=== PATIENT | male | born 1990 | race Caucasian/White ===

== ENCOUNTER 2023-07-18 17:13 | Emergency (ER) | payer BC, OTHER ==
--- NOTE | 2023-07-18 17:41 | ED ---
General Adult HPI - General Chief complaint: Syncope Stated complaint: Syncope Time Seen by Provider: 07/18/23 17:20 Source: patient, EMS Mode of arrival: EMS Limitations: no limitations - History of Present Illness Initial comments: 32-year-old male with no past medical history presents emergency department with an episode of unresponsiveness. is at bedside and provides the history. States that the patient had walked into the house. He appeared pale and went limp. She was able to lower him to the ground. She states that he did have some shaking activity while on the ground. Symptoms lasted for a few minutes while she called EMS. When patient originally awoke he was agitated but did come to. Patient is evaluated by myself and is back to his normal baseline. He has no history of cardiac disease. No previous history of syncope. He denied having any headaches or chest pain prior to the episode. He has no history of seizures. No family history of seizure disorder. No recent blunt head trauma. Patient did not bite his tongue. There is no bowel or bladder incontinence. He denies any drug or alcohol use. No other alleviating, precipitating or modifying factors - Related Data Home Medications Medication Instructions Recorded Confirmed No Known Home Medications 05/20/15 05/20/15 Allergies Allergy/AdvReac Type Severity Reaction Status Date / Time No Known Allergies Allergy Verified 07/18/23 17:18 Review of Systems ROS Statement: Those systems with pertinent positive or pertinent negative responses have been documented in the HPI. ROS Other: All systems not noted in ROS Statement are negative. Past Medical History Past Medical History: No Reported History History of Any Multi-Drug Resistant Organisms: None Reported Past Surgical History: No Surgical Hx Reported Past Psychological History: No Psychological Hx Reported Smoking Status: Never smoker Past Alcohol Use History: Occasional Past Drug Use History: None Reported General Exam Limitations: no limitations General appearance: alert, in no apparent distress Head exam: Present: atraumatic, normocephalic, normal inspection Eye exam: Present: normal appearance, PERRL, EOMI. Absent: scleral icterus, conjunctival injection, periorbital swelling ENT exam: Present: normal exam, mucous membranes moist Neck exam: Present: normal inspection. Absent: tenderness, meningismus, lymphadenopathy Respiratory exam: Present: normal lung sounds bilaterally. Absent: respiratory distress, wheezes, rales, rhonchi, stridor Cardiovascular Exam: Present: regular rate, normal rhythm, normal heart sounds. Absent: systolic murmur, diastolic murmur, rubs, gallop, clicks GI/Abdominal exam: Present: soft, normal bowel sounds. Absent: distended, tenderness, guarding, rebound, rigid Extremities exam: Present: normal inspection, full ROM, normal capillary refill. Absent: tenderness, pedal edema, joint swelling, calf tenderness Back exam: Present: normal inspection Neurological exam: Present: alert, oriented X3, CN II-XII intact Psychiatric exam: Present: normal affect, normal mood Skin exam: Present: warm, dry, intact, normal color. Absent: rash Course Vital Signs 07/18/23 07/18/23 07/18/23 17:15 19:26 22:19 Temperature 98.8 F Pulse Rate 84 65 70 Respiratory 18 16 16 Rate Blood Pressure 135/74 125/71 121/72 O2 Sat by Pulse 100 98 96 Oximetry Medical Decision Making - Medical Decision Making Was pt. sent in by a medical professional or institution (, PA, VIRTUAL RECRUITER, urgent care, hospital, or care home...) When possible be specific @ -No Did you speak to anyone other than the patient for history (EMS, parent, family, police, friend...)? What history was obtained from this source @ -I spoke with the patient's and EMS for history Did you review nursing and triage notes (agree or disagree)? Why? @ -I reviewed and agree with nursing and triage notes Were old charts reviewed (outside hosp., previous admission, EMS record, old EKG, old radiological studies, urgent care reports/EKG's, care home records)? Report findings @ -No old charts were reviewed Differential Diagnosis (chest pain, altered mental status, abdominal pain women, abdominal pain men, vaginal bleeding, weakness, fever, dyspnea, syncope, headache, dizziness, GI bleed, back pain, seizure, CVA, palpatations, mental health, musculoskeletal)? @Differential Syncope: Valvular disease, hypertrophic cardiomyopathy, pulmonary embolism, tamponade, tachycardia, bradycardia, MA, hypovolemia, hemorrhage, dissection, anemia, intracranial hemorrhage, seizure, hypoglycemia, carbon monoxide poisoning, this is not meant to be an all-inclusive list. Differential Seizure: Recurrent seizure disorder, febrile seizure, alcohol withdrawal, stimulants, meningitis, encephalitis, intercranial hemorrhage, intracranial tumor, stroke, eclampsia, thyrotoxicosis, hypocalcemia, hyponatremia, hypernatremia, hypomagnesemia, psychogenic, this is not meant to be an all-inclusive list. EKG interpreted by me (3pts min.). @ -Yes and demonstrates sinus rhythm with a rate of 76. GA interval 165. QRS 94. QTc of 377. No acute ST segment elevations or depressions. Peaked T waves V2 through V4 X-rays interpreted by me (1pt min.). @ -None done CT interpreted by me (1pt min.). @ -Yes and demonstrates no acute process U/S interpreted by me (1pt. min.). @ -None done What testing was considered but not performed or refused? (CT, X-rays, U/S, labs)? Why? @ -EEG and echo however patient would not remain hospitalized What meds were considered but not given or refused? Why? @ -None Did you discuss the management of the patient with other professionals (professionals i.e. , PA, VIRTUAL RECRUITER, lab, RT, psych nurse, psychotherapist social worker, clerk guide, teacher, foreign service officer, manager case)? Give summary @ -No Was smoking cessation discussed for >3mins.? @ -No Was critical care preformed (if so, how long)? @ -No Were there social determinants of health that impacted care today? How? (Homelessness, low income, unemployed, alcoholism, drug addiction, transportation, low edu. Level, literacy, decrease access to med. care, detention, rehab)? @ -No Was there de-escalation of care discussed even if they declined (Discuss DNR or withdrawal of care, Hospice)? DNR status @ -No What co-morbidities impacted this encounter? (DM, HTN, Smoking, COPD, CAD, Cancer, CVA, ARF, Chemo, Hep., AIDS, mental health diagnosis, sleep apnea, morbid obesity)? @ -None Was patient admitted / discharged? Hospital course, mention meds given and route, prescriptions, significant lab abnormalities, going to OR and other pertinent info. @ -Upon arrival patient seen and evaluated in room 20. Thorough history and physical exam was performed. IV access was established. Laboratory studies are conducted. CT brain was performed. Results are discussed with patient. Did discuss the difficulty between diagnosing syncope versus seizure. At this time the patient requires more testing. Did recommend admission for further evaluation however patient refused. He would like to follow-up outpatient for his further testing. Patient is instructed not to participate in any risky behavior. Do not operate heavy machinery or drive. Follow-up with the primary care doctor as soon as possible for further workup to include Holter monitor, echo and EEG. If the patient has any return of his symptoms he needs to return immediately to the emergency department. Patient was agreeable to this and discharged with a guarded prognosis Undiagnosed new problem with uncertain prognosis? @ -Yes Drug Therapy requiring intensive monitoring for toxicity (Heparin, Nitro, Insulin, Cardizem)? @ -No Were any procedures done? @ -No Diagnosis/symptom? @ -Acute seizure versus syncope Acute, or Chronic, or Acute on Chronic? @ -Acute Uncomplicated (without systemic symptoms) or Complicated (systemic symptoms)? @ -Complicated Side effects of treatment? @ -No Exacerbation, Progression, or Severe Exacerbation? @ -No Poses a threat to life or bodily function? How? (Chest pain, USA, MA, pneumonia, PE, COPD, DKA, ARF, appy, cholecystitis, CVA, Diverticulitis, Homicidal, Suicidal, threat to staff... and all critical care pts) @ -No - Lab Data Result diagrams: 07/18/23 18:50 07/18/23 18:50 Lab Results 07/18/23 07/18/23 07/18/23 Range/Units 18:50 18:50 18:50 WBC 15.6 H (3.8-10.6) k/uL RBC 4.55 (4.30-5.90) m/uL Hgb 14.0 (13.0-17.5) gm/dL Hct 41.7 (39.0-53.0) % MCV 91.5 (80.0-100.0) fL MCH 30.7 (25.0-35.0) pg MCHC 33.5 (31.0-37.0) g/dL RDW 12.2 (11.5-15.5) % Plt Count 257 (150-450) k/uL MPV 8.2 Neutrophils % (Manual) 85 % Lymphocytes % (Manual) 13 % Monocytes % (Manual) 1 % Eosinophils % (Manual) 1 % Neutrophils # (Manual) 13.26 H (1.3-7.7) k/uL Lymphocytes # (Manual) 2.03 (1.0-4.8) k/uL Monocytes # (Manual) 0.16 (0-1.0) k/uL Eosinophils # (Manual) 0.16 (0-0.7) k/uL Nucleated RBCs 0 (0-0) /100 WBC Manual Slide Review Performed Large Platelets Present PT 11.0 (10.0-12.5) sec INR 1.0 (<1.2) APTT 23.1 (22.0-30.0) sec Sodium 139 (137-145) mmol/L Potassium 4.4 (3.5-5.1) mmol/L Chloride 109 H (98-107) mmol/L Carbon Dioxide 24 (22-30) mmol/L Anion Gap 6 mmol/L BUN 10 (9-20) mg/dL Creatinine 0.63 L (0.66-1.25) mg/dL Est GFR (CKD-EPI)AfAm >90 (>60 ml/min/1.73 sqM) Est GFR (CKD-EPI)NonAf >90 (>60 ml/min/1.73 sqM) Glucose 93 (74-99) mg/dL Plasma Lactic Acid Stewart (0.7-2.0) mmol/L Calcium 9.3 (8.4-10.2) mg/dL Magnesium 2.0 (1.6-2.3) mg/dL Total Bilirubin 1.0 (0.2-1.3) mg/dL AST 32 (17-59) U/L ALT 16 (4-49) U/L Alkaline Phosphatase 56 (38-126) U/L Troponin I (0.000-0.034) ng/mL Total Protein 6.9 (6.3-8.2) g/dL Albumin 4.5 (3.5-5.0) g/dL Urine Color Urine Appearance (Clear) Urine pH (5.0-8.0) Ur Specific [place] (1.001-1.035) Urine Protein (Negative) Urine Glucose (UA) (Negative) Urine Ketones (Negative) Urine Blood (Negative) Urine Nitrite (Negative) Urine Bilirubin (Negative) Urine Urobilinogen (<2.0) mg/dL Ur Leukocyte Esterase (Negative) Urine Opiates Screen (NotDetected) Ur Oxycodone Screen (NotDetected) Urine Methadone Screen (NotDetected) Ur Barbiturates Screen (NotDetected) U Tricyclic Antidepress (NotDetected) Ur Phencyclidine Scrn (NotDetected) Ur Amphetamines Screen (NotDetected) U Methamphetamines Scrn (NotDetected) U Benzodiazepines Scrn (NotDetected) Urine Cocaine Screen (NotDetected) U Marijuana (THC) Screen (NotDetected) 07/18/23 07/18/23 07/18/23 Range/Units 18:50 18:50 18:50 WBC (3.8-10.6) k/uL RBC (4.30-5.90) m/uL Hgb (13.0-17.5) gm/dL Hct (39.0-53.0) % MCV (80.0-100.0) fL MCH (25.0-35.0) pg MCHC (31.0-37.0) g/dL RDW (11.5-15.5) % Plt Count (150-450) k/uL MPV Neutrophils % (Manual) % Lymphocytes % (Manual) % Monocytes % (Manual) % Eosinophils % (Manual) % Neutrophils # (Manual) (1.3-7.7) k/uL Lymphocytes # (Manual) (1.0-4.8) k/uL Monocytes # (Manual) (0-1.0) k/uL Eosinophils # (Manual) (0-0.7) k/uL Nucleated RBCs (0-0) /100 WBC Manual Slide Review Large Platelets PT (10.0-12.5) sec INR (<1.2) APTT (22.0-30.0) sec Sodium (137-145) mmol/L Potassium (3.5-5.1) mmol/L Chloride (98-107) mmol/L Carbon Dioxide (22-30) mmol/L Anion Gap mmol/L BUN (9-20) mg/dL Creatinine (0.66-1.25) mg/dL Est GFR (CKD-EPI)AfAm (>60 ml/min/1.73 sqM) Est GFR (CKD-EPI)NonAf (>60 ml/min/1.73 sqM) Glucose (74-99) mg/dL Plasma Lactic Acid Stewart 0.8 (0.7-2.0) mmol/L Calcium (8.4-10.2) mg/dL Magnesium (1.6-2.3) mg/dL Total Bilirubin (0.2-1.3) mg/dL AST (17-59) U/L ALT (4-49) U/L Alkaline Phosphatase (38-126) U/L Troponin I <0.012 (0.000-0.034) ng/mL Total Protein (6.3-8.2) g/dL Albumin (3.5-5.0) g/dL Urine Color Colorless Urine Appearance Clear (Clear) Urine pH 7.5 (5.0-8.0) Ur Specific [place] 1.002 (1.001-1.035) Urine Protein Negative (Negative) Urine Glucose (UA) Negative (Negative) Urine Ketones Negative (Negative) Urine Blood Negative (Negative) Urine Nitrite Negative (Negative) Urine Bilirubin Negative (Negative) Urine Urobilinogen <2.0 (<2.0) mg/dL Ur Leukocyte Esterase Negative (Negative) Urine Opiates Screen Not Detected (NotDetected) Ur Oxycodone Screen Not Detected (NotDetected) Urine Methadone Screen Not Detected (NotDetected) Ur Barbiturates Screen Not Detected (NotDetected) U Tricyclic Antidepress Not Detected (NotDetected) Ur Phencyclidine Scrn Not Detected (NotDetected) Ur Amphetamines Screen Not Detected (NotDetected) U Methamphetamines Scrn Not Detected (NotDetected) U Benzodiazepines Scrn Not Detected (NotDetected) Urine Cocaine Screen Not Detected (NotDetected) U Marijuana (THC) Screen Detected H (NotDetected) Disposition Clinical Impression: Syncope and collapse Disposition: HOME SELF-CARE Condition: Stable Instructions (If sedation given, give patient instructions): Syncope (ED) Additional Instructions: You need further workup to understand what happened today. I recommend an echo of your heart, Holter monitoring and an EEG. Please do not participate in high risk activities until your workup is complete. Return should you have return of your symptoms Is patient prescribed a controlled substance at d/c from ED?: No Referrals: None,Stated [Primary Care Provider] - 1-2 days Jay Vasques MD [STAFF PHYSICIAN] - 1-2 days Time of Disposition: 21:36
[2023-07-18 17:49] VITALS: TEMP 98.8
[2023-07-18] MEDS: SODIUM CHLORIDE 0.9% 1,000 ML IV STA (19:23)
[2023-07-18 19:29] LABS: Partial Thromboplastin Time 23.1 sec (22.0-30.0)
[2023-07-18 19:34] LABS: HCT 41.7 % (39.0-53.0); MCH 30.7 pg (25.0-35.0); MCHC 33.5 g/dL (31.0-37.0); MCV 91.5 fL (80.0-100.0); Mean Platelet Volume 8.2; Platelet Count 257 k/uL (150-450); RBC 4.55 m/uL (4.30-5.90); RDW 12.2 % (11.5-15.5); WBC 15.6 k/uL (3.8-10.6)
[2023-07-18 19:53] LABS: Eosinophils # (M) 0.16 k/uL (0-0.7); Large Platelets Present; Lymphocytes # (M) 2.03 k/uL (1.0-4.8); Monocytes # (M) 0.16 k/uL (0-1.0); Neutrophils # (M) 13.26 k/uL (1.3-7.7); Neutrophils % (M) 85 %; Nucleated Red Blood Cells 0 /100 WBC (0-0); Total Cells Counted 100
[2023-07-18 19:58] LABS: Appearance,Urine Clear (Clear); Bilirubin,Urine Negative (Negative); Blood,Urine Negative (Negative); Color,Urine Colorless; Glucose,Urine (UA) Negative (Negative); Ketones,Urine Negative (Negative); Leukocyte Esterase,Urine Negative (Negative); Nitrite,Urine Negative (Negative); PH, Urine 7.5 (5.0-8.0); Protein,Urine Negative (Negative); Specific Gravity,Urine 1.002 (1.001-1.035); Urobilinogen,Urine <2.0 mg/dL (<2.0)
[2023-07-18 20:04] LABS: ALT 16 U/L (4-49); African American GFR (CKD) >90 (>60 ml/min/1.73 sqM); Albumin 4.5 g/dL (3.5-5.0); Anion Gap 6 mmol/L; Blood Urea Nitrogen 10 mg/dL (9-20); Calcium 9.3 mg/dL (8.4-10.2); Carbon Dioxide 24 mmol/L (22-30); Chloride 109 mmol/L (98-107); Glucose 93 mg/dL (74-99); Non-African American GFR(CKD) >90 (>60 ml/min/1.73 sqM); Sodium 139 mmol/L (137-145); Total Protein 6.9 g/dL (6.3-8.2)
[2023-07-18 20:08] VITALS: RESP 16
[2023-07-18 20:09] LABS: Amphetamine Screen,Urine Not Detected (NotDetected); Barbiturate Screen,Urine Not Detected (NotDetected); Benzodiazepines Screen,Urine Not Detected (NotDetected); Cocaine Screen,Urine Not Detected (NotDetected); Methadone Screen, Urine Not Detected (NotDetected); Opiate Screen,Urine Not Detected (NotDetected); Oxycodone Screen, Urine Not Detected (NotDetected); Phencyclidine Screen,Urine Not Detected (NotDetected); Tricyclic Antidepressant,Urine Not Detected (NotDetected); Urn Cannabinoid Scrn Detected (NotDetected)
[2023-07-18 20:13] LABS: AST 32 U/L (17-59); Alkaline Phosphatase 56 U/L (38-126); Potassium 4.4 mmol/L (3.5-5.1)
--- NOTE | 2023-07-18 20:37 | XR ---
EXAMINATION TYPE: XR chest 2V DATE OF EXAM: 07/18/2023 7:22 PM CLINICAL INDICATION:Male, 32 years old with history of syncope; [facility] COMPARISON: None TECHNIQUE: XR chest 2V. Frontal and lateral views of the chest.. FINDINGS: Lines/Tubes/Devices: No indwelling lines are seen. Heart/mediastinum: Heart size is normal. Mediastinum appears normal. Pulmonary vascularity: Not increased, Lungs/Pleura: There is no evidence of pleural effusion, focal consolidation, or pneumothorax. Musculoskeletal: No acute osseous abnormality demonstrated in the limits of the exam. Other findings: None. IMPRESSION: No acute cardiopulmonary abnormality.
--- NOTE | 2023-07-18 21:02 | CT ---
EXAMINATION TYPE: CT brain cspine wo con CT DLP: 1357.3 mGycm, Automated exposure control for dose reduction was used. DATE OF EXAM: 07/18/2023 7:28 PM COMPARISON: None. CLINICAL INDICATION:Male, 32 years old with history of syncope; SYNCOPE TECHNIQUE: Brain: Multiple axial CT images of the brain were obtained without IV contrast. Cspine: Axial CT images from the skull base to the inferior aspect of T2 we obtained without intraven ous contrast. Coronal and sagittal reformatted images were also reviewed. FINDINGS: Brain: Extra-axial spaces: No abnormal extra-axial fluid collections. Ventricular system: Within normal limits. Cerebral parenchyma: No increased attenuation to suggest acute intraparenchymal hemorrhage. The gra y-white matter interface appears maintained. No significant atrophy. White matter unremarkable by C T. Cerebellum: No acute abnormality. Mass effect: No evidence of mass effect or midline shift. Intracranial vasculature: Unremarkable Soft tissues: Normal. Visualized orbits: Orbital contents appear grossly intact. Calvarium/osseous structures: No evidence of calvarial fracture. Paranasal sinuses and mastoid air cells: Clear. MRI is more sensitive for detecting acute processes such as infarct, and may be considered if clinica lly warranted. Cervical spine: Fracture: None seen. Osseous structures, spinal canal/neural foramina: Osseous structures appear unremarkable. No signific ant bony canal or neural foraminal stenoses. Vertebral alignment: No traumatic malalignment. Preserved normal cervical lordosis. There is mild ape x right curvature of the lower cervical spine seen on coronal imaging. Neck soft tissues: No acute finding.. Other: Lung apices show no acute infiltrate or pneumothorax. Mild emphysematous changes. A 2.4 mm davis bpleural nodule in the right lung apex. IMPRESSION: CT head: 1. No acute intracranial CT abnormality. CT cervical spine: 1. No evidence of acute cervical spine fracture or traumatic malalignment.
[2023-07-18 22:34] VITALS: BP 121/72; PULSE 70
== END 2023-07-18 22:20 | disposition home or self-care (01) ==
LOC: EC 17:13
DX: R55 Syncope and collapse (principal); R56.9 Unspecified convulsions
CPT/HCPCS: 36415; 70450; 71046; 72125; 80053; 80306; 81003; 83605; 83735; 84484; 85025; 85610; 85730; 93005; 96360; 96361; 99285

== ENCOUNTER 2023-08-24 17:42 | Observation (INO) | payer BC ==
--- NOTE | 2023-08-24 17:56 | ED ---
Seizure HPI - General Chief Complaint: Seizure Stated Complaint: Seizure Time Seen by Provider: 08/24/23 17:48 Source: EMS, RN notes reviewed, old records reviewed Mode of arrival: ambulatory Limitations: no limitations - History of Present Illness Initial Comments: This is a 32-year-old male to the ER for evaluation today. Patient is here for seizure evaluation. Patient has history of 3 seizures to syncopal events patient has gone through outpatient evaluation regards to syncope in the past and feels significantly anxious. Including cardiac testing monitoring echocardiogram etc. Patient is scheduled to see outpatient neurology in regards to possible seizure causes of symptoms. Patient's states patient was not answering questions went into the other room and then had shaking-like activity stiff activity and went to the ground. Currently in the ER he has no complaints MD Complaint: seizure, possible seizure -: hour(s) Description of Episode: loss of consciousness -: second(s) Witnessed: yes - by bystander Trauma: Yes Seizure History: known seizure disorder (Diagnosed) Possible Precipitating Event: none Associated Symptoms: denies other symptoms Treatments Prior to Arrival: none - Related Data Home Medications Medication Instructions Recorded Confirmed No Known Home Medications 05/20/15 05/20/15 Allergies Allergy/AdvReac Type Severity Reaction Status Date / Time No Known Allergies Allergy Verified 08/24/23 17:49 Review of Systems ROS Statement: Those systems with pertinent positive or pertinent negative responses have been documented in the HPI. ROS Other: All systems not noted in ROS Statement are negative. Past Medical History Past Medical History: No Reported History Additional Past Medical History / Comment(s): seizures x3 ?? History of Any Multi-Drug Resistant Organisms: None Reported Past Surgical History: No Surgical Hx Reported Past Psychological History: No Psychological Hx Reported Smoking Status: Never smoker Past Alcohol Use History: Occasional Past Drug Use History: Marijuana General Exam Limitations: no limitations General appearance: alert, in no apparent distress, anxious Head exam: Present: atraumatic, normocephalic, normal inspection Eye exam: Present: normal appearance, PERRL, EOMI. Absent: scleral icterus, conjunctival injection, periorbital swelling ENT exam: Present: normal exam, mucous membranes moist Neck exam: Present: normal inspection. Absent: tenderness, meningismus, lymphadenopathy Respiratory exam: Present: normal lung sounds bilaterally. Absent: respiratory distress, wheezes, rales, rhonchi, stridor Cardiovascular Exam: Present: regular rate, normal rhythm, normal heart sounds. Absent: systolic murmur, diastolic murmur, rubs, gallop, clicks GI/Abdominal exam: Present: soft, normal bowel sounds. Absent: distended, tenderness, guarding, rebound, rigid Extremities exam: Present: normal inspection, full ROM, normal capillary refill. Absent: tenderness, pedal edema, joint swelling, calf tenderness Back exam: Present: normal inspection Neurological exam: Present: alert, oriented X3, CN II-XII intact Psychiatric exam: Present: normal affect, normal mood Skin exam: Present: warm, dry, intact, normal color. Absent: rash Course Vital Signs 08/24/23 08/24/23 17:44 19:19 Temperature 98.9 F 97.7 F Pulse Rate 86 68 Respiratory 16 16 Rate Blood Pressure 121/68 O2 Sat by Pulse 98 98 Oximetry - Reevaluation(s) Reevaluation #1: 08/24/23 19:12 Medical records reviewed Reevaluation #2: 08/24/23 19:12 No recurrent seizure activity Reevaluation #3: 08/24/23 19:12 Patient informed of results questions answered Reevaluation #4: Was pt. sent in by a medical professional or institution (, PA, SATELLITE DISH REPAIRER, urgent care, hospital, or skilled nursing...) When possible be specific @ -no Did you speak to anyone other than the patient for history (EMS, parent, family, police, friend...)? What history was obtained from this source @ -no Did you review nursing and triage notes (agree or disagree)? Why? @ -agree Are old charts reviewed (outside hosp., previous admission, EMS record, old EKG, old radiological studies, urgent care reports/EKG's, skilled nursing records)? Report findings @ -yes Differential Diagnosis (chest pain, altered mental status, abdominal pain women, abdominal pain men, vaginal bleeding, weakness, fever, dyspnea, syncope, headache, dizziness, GI bleed, back pain, seizure, CVA, palpatations, mental health, musculoskeletal)? @ -prior EKG interpreted by me (3pts min.). @ -yes X-rays interpreted by me (1pt min.). @ -yes negative for acute disease CT interpreted by me (1pt min.). @ -no U/S interpreted by me (1pt. min.). @ -no What testing was considered but not performed or refused? (CT, X-rays, U/S, labs)? Why? @ -none What meds were considered but not given or refused? Why? @ -none Did you discuss the management of the patient with other professionals (professionals i.e. , PA, SATELLITE DISH REPAIRER, lab, RT, psych nurse, dialysis social worker, supervisor ski production, teacher, safety officer, geriatric case manager)? Give summary @ -no Was smoking cessation discussed for >3mins.? @ -no Was critical care preformed (if so, how long)? @ -no Were there social determinants of health that impacted care today? How? (Homelessness, low income, unemployed, alcoholism, drug addiction, transportation, low edu. Level, literacy, decrease access to med. care, fpc, rehab)? @ -none Was there de-escalation of care discussed even if they declined (Discuss DNR or withdrawal of care, Hospice)? DNR status @ -no What co-morbidities impacted this encounter? (DM, HTN, Smoking, COPD, CAD, Cancer, CVA, ARF, Chemo, Hep., AIDS, mental health diagnosis, sleep apnea, morbid obesity)? @ -none Was patient admitted / discharged? Hospital course, mention meds given and route, prescriptions, significant lab abnormalities, going to OR and other pertinent info. @ - Undiagnosed new problem with uncertain prognosis? @ -no Drug Therapy requiring intensive monitoring for toxicity (Heparin, Nitro, Insulin, Cardizem)? @ -no Were any procedures done? @ -no Diagnosis/symptom? @ - Acute, or Chronic, or Acute on Chronic? @ -Acute Uncomplicated (without systemic symptoms) or Complicated (systemic symptoms)? @ -Complicated Side effects of treatment? @ -no Exacerbation, Progression, or Severe Exacerbation? @ -exacerbation Poses a threat to life or bodily function? How? (Chest pain, USA, AR, pneumonia, PE, COPD, DKA, ARF, appy, cholecystitis, CVA, Diverticulitis, Homicidal, Suicidal, threat to staff... and all critical care pts) @ -yes Reevaluation #5: Differential Seizure: Recurrent seizure disorder, febrile seizure, alcohol withdrawal, stimulants, meningitis, encephalitis, intercranial hemorrhage, intracranial tumor, stroke, eclampsia, thyrotoxicosis, hypocalcemia, hyponatremia, hypernatremia, hypomagnesemia, psychogenic, this is not meant to be an all-inclusive list. - Consultations Consultation #1: Spoke with sound who agrees to admit this patient Medical Decision Making - Medical Decision Making 32 male to ER with history of syncope procedure, patient has gone through syncopal evaluation with no cause found. Patient has recurrent of activity today concern for seizure by family who witnessed, patient will admit for neurology - Lab Data Result diagrams: 08/24/23 18:01 08/24/23 18:01 Lab Results 08/24/23 08/24/23 08/24/23 Range/Units 18:01 18:01 18:01 WBC 12.8 H (3.8-10.6) k/uL RBC 4.64 (4.30-5.90) m/uL Hgb 14.4 (13.0-17.5) gm/dL Hct 43.1 (39.0-53.0) % MCV 92.9 (80.0-100.0) fL MCH 31.0 (25.0-35.0) pg MCHC 33.4 (31.0-37.0) g/dL RDW 12.0 (11.5-15.5) % Plt Count 285 (150-450) k/uL MPV 8.0 Neutrophils % (Manual) 69 % Lymphocytes % (Manual) 22 % Monocytes % (Manual) 4 % Eosinophils % (Manual) 5 % Neutrophils # (Manual) 8.83 H (1.3-7.7) k/uL Lymphocytes # (Manual) 2.82 (1.0-4.8) k/uL Monocytes # (Manual) 0.51 (0-1.0) k/uL Eosinophils # (Manual) 0.64 (0-0.7) k/uL Nucleated RBCs 0 (0-0) /100 WBC Manual Slide Review Performed Large Platelets Present Sodium 138 (137-145) mmol/L Potassium 4.3 (3.5-5.1) mmol/L Chloride 108 H (98-107) mmol/L Carbon Dioxide 20 L (22-30) mmol/L Anion Gap 10 mmol/L BUN 13 (9-20) mg/dL Creatinine 0.63 L (0.66-1.25) mg/dL Est GFR (CKD-EPI)AfAm >90 (>60 ml/min/1.73 sqM) Est GFR (CKD-EPI)NonAf >90 (>60 ml/min/1.73 sqM) Glucose 105 H (74-99) mg/dL Calcium 9.0 (8.4-10.2) mg/dL Phosphorus 2.4 L (2.5-4.5) mg/dL Magnesium 1.9 (1.6-2.3) mg/dL Total Bilirubin 0.8 (0.2-1.3) mg/dL AST 27 (17-59) U/L ALT 17 (4-49) U/L Alkaline Phosphatase 52 (38-126) U/L Total Protein 6.7 (6.3-8.2) g/dL Albumin 4.3 (3.5-5.0) g/dL Lipase 230 (23-300) U/L Urine Color Colorless Urine Appearance Clear (Clear) Urine pH 5.5 (5.0-8.0) Ur Specific [place] 1.011 (1.001-1.035) Urine Protein Negative (Negative) Urine Glucose (UA) Negative (Negative) Urine Ketones 1+ H (Negative) Urine Blood Trace H (Negative) Urine Nitrite Negative (Negative) Urine Bilirubin Negative (Negative) Urine Urobilinogen <2.0 (<2.0) mg/dL Ur Leukocyte Esterase Negative (Negative) Urine RBC <1 (0-5) /hpf Urine WBC 1 (0-5) /hpf Salicylates <1.0 mg/dL Urine Opiates Screen Not Detected (NotDetected) Ur Oxycodone Screen Not Detected (NotDetected) Urine Methadone Screen Not Detected (NotDetected) Acetaminophen <10.0 ug/mL Ur Barbiturates Screen Not Detected (NotDetected) U Tricyclic Antidepress Not Detected (NotDetected) Ur Phencyclidine Scrn Not Detected (NotDetected) Ur Amphetamines Screen Not Detected (NotDetected) U Methamphetamines Scrn Not Detected (NotDetected) U Benzodiazepines Scrn Not Detected (NotDetected) Urine Cocaine Screen Not Detected (NotDetected) U Marijuana (THC) Screen Detected H (NotDetected) Serum Alcohol <10 mg/dL - EKG Data -: EKG Interpreted by Me (EKG is sinus 76 NC 160 QRS 98 QTc 382) Disposition Clinical Impression: New onset seizure Disposition: ADMITTED IP TO THIS HOSP Condition: Good Is patient prescribed a controlled substance at d/c from ED?: No Time of Disposition: 20:00
[2023-08-24] MEDS: SODIUM CHLORIDE 0.9% 1,000 ML IV STA (18:12)
[2023-08-24] MEDS: LORazepam 2 MG/ML INJ IV STA (18:12)
[2023-08-24 18:22] LABS: HCT 43.1 % (39.0-53.0); HGB 14.4 gm/dL (13.0-17.5); MCHC 33.4 g/dL (31.0-37.0); MCV 92.9 fL (80.0-100.0); Platelet Count 285 k/uL (150-450); RBC 4.64 m/uL (4.30-5.90); WBC 12.8 k/uL (3.8-10.6)
[2023-08-24 18:29] LABS: Appearance,Urine Clear (Clear); Bilirubin,Urine Negative (Negative); Blood,Urine Trace (Negative); Color,Urine Colorless; Glucose,Urine (UA) Negative (Negative); Ketones,Urine 1+ (Negative); Leukocyte Esterase,Urine Negative (Negative); Nitrite,Urine Negative (Negative); PH, Urine 5.5 (5.0-8.0); Protein,Urine Negative (Negative); RBC,Urine <1 /hpf (0-5); Specific Gravity,Urine 1.011 (1.001-1.035); Urobilinogen,Urine <2.0 mg/dL (<2.0); WBC,Urine 1 /hpf (0-5)
[2023-08-24 18:32] LABS: ALT 17 U/L (4-49); AST 27 U/L (17-59); Acetaminophen <10.0 ug/mL; African American GFR (CKD) >90 (>60 ml/min/1.73 sqM); Albumin 4.3 g/dL (3.5-5.0); Alcohol <10 mg/dL; Alkaline Phosphatase 52 U/L (38-126); Anion Gap 10 mmol/L; Blood Urea Nitrogen 13 mg/dL (9-20); Carbon Dioxide 20 mmol/L (22-30); Chloride 108 mmol/L (98-107); Glucose 105 mg/dL (74-99); Lipase 230 U/L (23-300); Magnesium 1.9 mg/dL (1.6-2.3); Non-African American GFR(CKD) >90 (>60 ml/min/1.73 sqM); Phosphorus 2.4 mg/dL (2.5-4.5); Potassium 4.3 mmol/L (3.5-5.1); Salicylate <1.0 mg/dL; Sodium 138 mmol/L (137-145); Total Bilirubin 0.8 mg/dL (0.2-1.3); Total Protein 6.7 g/dL (6.3-8.2)
[2023-08-24 19:03] LABS: Urn Cannabinoid Scrn Detected (NotDetected)
[2023-08-24 19:04] LABS: Amphetamine Screen,Urine Not Detected (NotDetected); Barbiturate Screen,Urine Not Detected (NotDetected); Benzodiazepines Screen,Urine Not Detected (NotDetected); Cocaine Screen,Urine Not Detected (NotDetected); Methadone Screen, Urine Not Detected (NotDetected); Opiate Screen,Urine Not Detected (NotDetected); Oxycodone Screen, Urine Not Detected (NotDetected); Phencyclidine Screen,Urine Not Detected (NotDetected); Tricyclic Antidepressant,Urine Not Detected (NotDetected)
[2023-08-24 19:21] LABS: Eosinophils # (M) 0.64 k/uL (0-0.7); Lymphocytes # (M) 2.82 k/uL (1.0-4.8); Monocytes # (M) 0.51 k/uL (0-1.0); Neutrophils # (M) 8.83 k/uL (1.3-7.7); Neutrophils % (M) 69 %; Nucleated Red Blood Cells 0 /100 WBC (0-0); Total Cells Counted 100
[2023-08-24 19:23] LABS: Large Platelets Present
[2023-08-24] MEDS ORDERED: NALOXONE 0.4 MG/ML 1 ML VIAL IV PRN (20:07)
[2023-08-24] MEDS: SODIUM CHLORIDE 0.9% 1,000 ML IV SCH (20:45)
--- NOTE | 2023-08-25 00:18 | P.HPIM ---
History of Present Illness H&P Date: 08/25/23 Chief Complaint: Gayle Patient is a 32-year-old male with no significant past medical history came to ER with an episode of " passing out" around 5 PM. As per patient's , she heard a loud thump in the room and found patient standing against the wall with a stiff body, head extended and patient was staring into the ceiling. His also witnessed him convulsing and then eventually falling down on the floor and assuming position followed by foaming at the mouth. The whole episode lasted for about 3 minutes followed by 15 minutes of postictal confusion. Pa reva denies any tongue bite or loss of urine or bowel movement. Patient also denies any prodromal sign prior to onset of seizure episode. However as per , patient wasnot being himself a few minutes before seizure-like episode started where she called his name and patient did not respond to it. This is patient's second episode of a seizure within the last 6 weeks. Patient reports similar presentation and was brought to the ER during the prior episode. He was asked to follow-up with neurology for EEG in September. Patient denies recent illness or sick contacts. Denies headaches, nausea, vomiting, fever, chills, shortness of breath, chest pain, abdominal pain, diarrhea, constipation, w eakness and numbness in upper and lower extremities. Patient is at his baseline at the time of interview. EKG done in the ER shows normal sinus rhythm with heart rate of 76 bpm, QRS duration is 98 ms, QTc is 382 ms, no ST-T wave abnormalities noted. Laboratory evaluation shows WBC 12.8, hemoglobin 14.4, hematocrit 43.1, MCV 92.9, neutrophil count 8.83, sodium 138, potassium 4.3, chloride 108, bicarb 20, BUN 13, creatinine 1.63, glucose 105, phosphorus 2.4, urine ketones 1+. Marijuana detected on urine drug screening. Vitals: Tmax 98.9 F, pulse rate 79, respiratory rate 15, blood pressure 119/66, O2 saturation 98 on room air Review of systems: Pertinent positives and negatives as discussed in HPI, a complete review of systems was performed and all other systems are negative. 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 Family History: Noncontributory Physical examination: Vital signs reviewed General: non toxic, no distress, appears at stated age, normal weight Derm: no unusual rashes/lesions, warm Head: atraumatic, normocephalic, symmetric Eyes: EOMI, no lid lag, anicteric sclera, pupils equal round reactive to light ENT: Nose and ears atraumatic Neck: No cervical lymphadenopathy, trachea midline, supple Mouth: no lip lesion, mucus membranes moist, small bite lesion on the right anterior lateral tongue (which patient reports was due toa accidental tongue bite a day ago) Cardiovascular: S1S2 reg, no murmur, positive dorsalis pedis pulse bilateral, no edema Lungs: CTA bilateral, no rhonchi, no rales, no accessory muscle use Abdominal: soft, nontender to palpation, no guarding Ext: muscle strength 5 out of 5 in all 4 extremities grossly, no gross muscle atrophy, no contractures, Neuro: CN II-XI grossly intact, no gross focal neuro deficits Psych: Alert, oriented, appropriate affect Assessment/Plan: 32-year-old male with no significant past medical history presented the ER with seizure-like activity. This is his second episode within 6 weeks. 1. Tonic-clonic seizure Neurology consulted CT head and C-spine done on prior visit was unremarkable Seizure precautions Fall precautions Give Ativan 1 mg IV push once if there is another seizure episode Continue with regular diet Start patient on Keppra 500 mg po bid 2. Leukocytosis, suspect due to acute stressor with no signs of active infection at this time Continue with IV fluids at 75 mLs/h Repeat CBC with differential 3. Ketonuria, suspect due to seizure episode Monitor BMP for blood glucose levels for now 4. Metabolic acidosis, likely due to seizure episode Continue with IV fluids and monitor for nwo DVT prophylaxis: Lovenox 40 mg subcu daily The patient is admitted with an anticipated less than than 2 midnight stay for evaluation of seizure CODE STATUS: full Discussed with: Patient Anticipated discharge place: Home Past Medical History Past Medical History: No Reported History Additional Past Medical History / Comment(s): seizures x3 ?? History of Any Multi-Drug Resistant Organisms: None Reported Past Surgical History: No Surgical Hx Reported Past Psychological History: No Psychological Hx Reported Smoking Status: Never smoker Past Alcohol Use History: Occasional Past Drug Use History: Marijuana Medications and Allergies Home Medications Medication Instructions Recorded Confirmed Type No Known Home Medications 05/20/15 05/20/15 History Allergies Allergy/AdvReac Type Severity Reaction Status Date / Time No Known Allergies Allergy Verified 08/24/23 17:49 Physical Exam Vitals: Vital Signs Temp Pulse Resp BP Pulse Ox 08/24/23 21:51 79 15 119/66 98 08/24/23 19:19 97.7 F 68 16 121/68 98 08/24/23 17:44 98.9 F 86 16 98 Intake and Output 08/24/23 08/24/23 08/25/23 14:59 22:59 06:59 Other: Weight 70.307 kg Results CBC & Chem 7: 08/24/23 18:01 08/24/23 18:01 Labs: Abnormal Lab Results - Last 24 Hours (Table) 08/24/23 08/24/23 08/24/23 Range/Units 18:01 18:01 18:01 WBC 12.8 H (3.8-10.6) k/uL Neutrophils # (Manual) 8.83 H (1.3-7.7) k/uL Chloride 108 H (98-107) mmol/L Carbon Dioxide 20 L (22-30) mmol/L Creatinine 0.63 L (0.66-1.25) mg/dL Glucose 105 H (74-99) mg/dL Phosphorus 2.4 L (2.5-4.5) mg/dL Urine Ketones 1+ H (Negative) Urine Blood Trace H (Negative) U Marijuana (THC) Screen Detected H (NotDetected)
[2023-08-25] MEDS: levETIRAcetam 500 MG TAB PO SCH (00:43)
[2023-08-25 05:10] VITALS: RESP 18
[2023-08-25 07:17] LABS: HCT 40.5 % (39.0-53.0); MCH 30.1 pg (25.0-35.0); MCV 94.3 fL (80.0-100.0); Mean Platelet Volume 7.9; Platelet Count 279 k/uL (150-450); RDW 12.2 % (11.5-15.5); WBC 9.3 k/uL (3.8-10.6)
[2023-08-25 07:18] LABS: ALT 14 U/L (4-49); AST 30 U/L (17-59); African American GFR (CKD) >90 (>60 ml/min/1.73 sqM); Albumin 3.6 g/dL (3.5-5.0); Alkaline Phosphatase 42 U/L (38-126); Anion Gap 1 mmol/L; Blood Urea Nitrogen 11 mg/dL (9-20); Calcium 8.7 mg/dL (8.4-10.2); Carbon Dioxide 25 mmol/L (22-30); Chloride 113 mmol/L (98-107); Glucose 87 mg/dL (74-99); Magnesium 1.9 mg/dL (1.6-2.3); Non-African American GFR(CKD) >90 (>60 ml/min/1.73 sqM); Phosphorus 3.4 mg/dL (2.5-4.5); Potassium 4.3 mmol/L (3.5-5.1); Sodium 139 mmol/L (137-145); Total Bilirubin 0.8 mg/dL (0.2-1.3); Total Protein 5.8 g/dL (6.3-8.2)
[2023-08-25 08:02] LABS: Eosinophils # (M) 0.37 k/uL (0-0.7); Lymphocytes # (M) 1.95 k/uL (1.0-4.8); Monocytes # (M) 0.74 k/uL (0-1.0); Neutrophils # (M) 6.23 k/uL (1.3-7.7); Neutrophils % (M) 67 %; Nucleated Red Blood Cells 0 /100 WBC (0-0); Total Cells Counted 100
[2023-08-25] MEDS: ENOXAPARIN 40 MG/0.4 ML SYRINGE SQ SCH (08:38)
[2023-08-25 12:29] VITALS: BP 114/68; PULSE 61; TEMP 98.3
--- NOTE | 2023-08-25 13:28 | P.CNNES ---
History of Present Illness Consult date: 08/25/23 Requesting physician: Jay Pereyra Reason for Consult: seizure History of Present Illness: This is a 32-year-old gentleman had seizure-like activity yesterday. Patient stated that around 4:30 PM he was at home and he was walking to his bedroom and then he passed out and had a position then had shaking of all extremities and this was witnessed by his and she noticed that he was drooling. He said the episode lasted about 3 minutes. Denies any urinary or bowel incontinence or any tongue bite. He had minimal small put postictal confusion. He denies any auras prior to the event. Denies any fever or sick contacts. Denies any head trauma. Denies recalling the episode yesterday. He had similar event about a month ago but the episode lasted about 6 minutes. He stated that he had a recent echo, carotid duplex and was normal. He had an event monitor for a week and does not know over the results but that he stated that if there is any events they would notify him. He has neurology appointment coming up on September 24, 2023 and that he will have an EEG. He will be seeing Dr. Vela's team. He denies any seizure in the past. Denies any illicit drug use. She rarely drinks any alcohol. Denies family history of seizure that he members. He vapes. He uses cannabis. Patient feels back to baseline. Denies of any headache. Some of the work-up during this hospital visit consisted of: Initial white blood cell is 12.8 thousand and the repeat is 9.3 thousand. Sodium, calcium, magnesium, ACL ALT are within normal limits Glucose is 105 on presentation Phosphorus is 2.4 and repeat is 3.4. Urine Tox screen is positive for marijuana. Otherwise rest is not detected and the serum alcohol is less than [address] a recent [address] of the head on 07/18/2023 and is reported as no acute intracranial CT abnormality. Review of Systems The positive and negative as per HPI. Past Medical History Past Medical History: No Reported History Additional Past Medical History / Comment(s): seizures x3 ?? History of Any Multi-Drug Resistant Organisms: None Reported Past Surgical History: No Surgical Hx Reported Past Psychological History: No Psychological Hx Reported Smoking Status: Vaper Past Alcohol Use History: Occasional Past Drug Use History: Marijuana Medications and Allergies Home Medications Medication Instructions Recorded Confirmed Type No Known Home Medications 05/20/15 08/25/23 History Allergies Allergy/AdvReac Type Severity Reaction Status Date / Time No Known Allergies Allergy Verified 08/25/23 10:29 Physical Examination - Vital Signs Vital Signs: Vital Signs Temp Pulse Pulse Resp BP BP Pulse Ox 08/25/23 11:20 98.3 F 61 18 114/68 99 08/25/23 07:09 98.4 F 70 18 104/56 98 08/25/23 05:10 98.0 F 58 L 18 109/72 08/25/23 04:51 92 17 98 08/25/23 02:13 62 16 107/58 96 08/25/23 00:30 70 16 112/63 98 08/24/23 22:30 80 19 114/66 98 08/24/23 21:51 79 15 119/66 98 08/24/23 19:19 97.7 F 68 16 121/68 98 08/24/23 17:44 98.9 F 86 16 98 Intake and Output 08/24/23 08/25/23 08/25/23 22:59 06:59 14:59 Other: Voiding Method Toilet # Voids 1 Weight 70.307 kg 70.307 kg GENERAL: The patient is lying in bed and is not in acute distress. NEUROLOGICAL: Higher mental function: The patient is awake, alert, oriented to self, place and time. Patient is following commands. No aphasia and no neglect. Cranial nerves: The pupils are round, equal and reactive to light and accommodation. Visual silva are full to confrontation throughout. Extraocular movement is intact no nystagmus is noted. Facial sensation is normal to touch throughout. The facial strength is normal throughout. Hearing is normal bilaterally to hand rub. Tongue is midline and moved [id number] without any difficulty. No dysarthria is noted. Shoulder shrug is normal bilaterally. Motor: The strength is 5 over 5 throughout. Normal tone and bulk. Cerebellum: Normal finger to nose heel to [place] bilaterally. Sensation: Sensation is normal to touch throughout. Reflexes (right/left): 2+ throughout. Plantars are downgoing bilaterally. Results - Laboratory Findings CBC and BMP: 08/25/23 06:18 08/25/23 06:14 Abnormal Lab Findings: Abnormal Labs 08/24/23 08/24/2324 18:01 18:01 18:01 WBC 12.8 H Neutrophils # (Manual) 8.83 H Chloride 108 H Carbon Dioxide 20 L Creatinine 0.63 L Glucose 105 H Phosphorus 2.4 L Total Protein Urine Ketones 1+ H Urine Blood Trace H U Marijuana (THC) Screen Detected H 08/25/23 06:14 WBC Neutrophils # (Manual) Chloride 113 H Carbon Dioxide Creatinine 0.61 L Glucose Phosphorus Total Protein 5.8 L Urine Ketones Urine Blood U Marijuana (THC) Screen Assessment and Plan Assessment: This is a 32-year-old gentleman who presents emergency department because of seizure-like activity yesterday at 4:30 PM in which he did not drink enough all extremity lasting for 3 minutes with a small postictal confusion. He had a similar event about a month ago and that episode lasted for 6 minutes. Acute new onset seizure Canniboid use Vapes Plan: Patient is on Keppra 500 mg every 12 hours started by the primary team and I agree with that. He received Ativan 1 mg once. Seizure precautions seizure pads MRI of the brain and routine EEG is ordered and are pending and unlikely they will be done today till Sunday. Patient would like this test to be done as an outpatient and not wait till Sunday. Patient has a neurology appointment this September 24, 2023 (thinks with Dr. Vela) and will have an EEG. Will attempt to coordinate an earlier EEG if possible. I recommend MRI of the brain with and without seizure protocol and that could be coordinated by his neurologist as an outpatient. Per the [place] DMV to avoid driving for 6 months until seizure-free, avoid heights, avoid swimming unassisted or using heavy machinery. Defer the rest of the medical bladder to the primary team and other specialist The plan is discussed with patient and primary team. If patient continues to be at baseline by later afternoon, then is clear for discharge. Time with Patient: Greater than 30
--- NOTE | 2023-08-25 14:31 | P.DS ---
Providers Date of admission: 08/24/23 20:09 Expected date of discharge: 08/25/23 Attending physician: Ramila Santoyo MD Consults: 08/24/23 20:07 Consult Physician Routine Consulting Provider: Kb Ley Consult Reason/Comments: sz Do you want consulting provider notified?: Yes Primary care physician: [facility] Course: Discharge Diagnosis: Epilepsy Leukocytosis Metabolic acidosis Hospital Course: Patient is a 32-year-old male with no significant past medical history came to ER with an episode of " passing out" around 5 PM. As per patient's , she heard a loud thump in the room and found patient standing against the wall with a stiff body, head extended and patient was staring into the ceiling. His also witnessed him convulsing and then eventually falling down on the floor and assuming position followed by foaming at the mouth. The whole episode lasted for about 3 minutes followed by 15 minutes of postictal confusion. Patient denies any tongue bite or loss of urine or bowel movement. Patient also denies any prodromal sign prior to onset of seizure episode. However as per , patient wasnot being himself a few minutes before seizure-like episode started where she called his name and patient did not respond to it. This is patient's second episode of a seizure within the last 6 weeks. Patient reports similar presentation and was brought to the ER during the prior episode. He was asked to follow-up with neurology for EEG in September. Patient denies recent illness or sick contacts. Denies headaches, nausea, vomiting, fever, chills, shortness of breath, chest pain, abdominal pain, diarrhea, constipation, weakness and numbness in upper and lower extremities. Patient is at his baseline at the time of interview. EKG done in the ER shows normal sinus rhythm with heart rate of 76 bpm, QRS duration is 98 ms, QTc is 382 ms, no ST-T wave abnormalities noted. Laboratory evaluation shows WBC 12.8, hemoglobin 14.4, hematocrit 43.1, MCV 92.9, neutrophil count 8.83, sodium 138, potassium 4.3, chloride 108, bicarb 20, BUN 13, creatinine 1.63, glucose 105, phosphorus 2.4, urine ketones 1+. Marijuana detected on urine drug screening. Vitals: Tmax 98.9 F, pulse rate 79, respiratory rate 15, blood pressure 119/66, O2 saturation 98 on room air Patient was evaluated by neurology. Was started on Keppra 500 twice daily. Recommending outpatient EEG. Patient already has a follow-up scheduled with neurology in September. Will likely need an MRI with and without contrast as well outpatient. Patient seen and examined at bedside. Vital signs reviewed and stable. General: Nontoxic, no distress, appears at stated age Derm: Warm, dry Head: Atraumatic, normocephalic, symmetric Eyes: EOMI, no lid lag, anicteric sclera Mouth: No lip lesion, mucus membranes moist Cardiovascular: S1S2 reg, no murmur Lungs: CTA bilateral, no rhonchi, no rales, no accessory muscle use Abdominal: Soft, nontender to palpation, no guarding, no appreciable organomegaly Ext: No gross muscle atrophy, no edema, no contractures Neuro: CN II-XI grossly intact, no focal neuro deficits Psych: Alert, oriented, appropriate affect A total of 33 minutes of time were spent preparing this complex discharge summary. Patient was discharged on 08/25/2023 at 19 00. Patient Condition at Discharge: Stable Plan - Discharge Summary Discharge Rx Participant: No New Discharge Prescriptions: New levETIRAcetam [Keppra] 500 mg PO Q12HR #90 tab Discharge Medication List levETIRAcetam [Keppra] 500 mg PO Q12HR #90 tab 08/25/23 [Rx] Follow up Appointment(s)/Referral(s): Jay Vasques MD [Primary Care Provider] - 1-2 days Patient Instructions/Handouts: Seizure/Epilepsy Discharge Instructions & Follow-Up, Epilepsy (DC) Activity/Diet/Wound Care/Special Instructions: Please see your PCP. You will need to get EEG and also follow up with neurology in September. Discharge Disposition: HOME SELF-CARE
== END 2023-08-25 19:31 | disposition home or self-care (01) ==
LOC: EC 17:42 → 3SCARD 20:09 → 6NMEDSUR 08-25 04:16
PROVIDERS: ADMIT Internal Medicine; ATTEND Internal Medicine
DX: G40.909 Epilepsy, unspecified, not intractable, without status epilepticus (principal); E87.20 Acidosis, unspecified; D72.829 Elevated white blood cell count, unspecified; R82.4 Acetonuria; F12.90 Cannabis use, unspecified, uncomplicated; F17.290 Nicotine dependence, other tobacco product, uncomplicated
CPT/HCPCS: 96361 ×2; 96372; 82075; 96374; 99285; 36415; 93005; 80053 ×2; 83690; 83735 ×2; 84100 ×2; 85025 ×2; 81001; 80306; 80143; 80320; 80179; G0378 ×3; J2060; J1650

== ENCOUNTER → 2023-09-11 | Outpatient (CLI) | payer BC ==
--- NOTE | 2023-09-12 08:47 | MR ---
EXAMINATION TYPE: MR brain wo/w con DATE OF EXAM: 09/11/2023 10:24 PM CLINICAL INDICATION:Male, 32 years old with history of G40.909 EPILEPSY UNSPECIFIED; PHH, Seizures. COMPARISON: 07/18/2023 TECHNIQUE: Multi planar, multi sequence imaging was performed through the brain including: T1, T2, In version recovery, susceptibility weighted imaging and gradient echo imaging and Diffusion weighted im aging. The patient was then given intravenous contrast and multi planar, T1 fat-saturation images wer e obtained. IV Contrast: 6.5 cc Gadavist FINDINGS: The barahona-white junctions, ventricular system, basal cisterns appear unremarkable. Diffusion-weighted imaging shows no evidence of restricted diffusion to suggest acute/subacute infarct. Intracranial ar terial flow voids are maintained. Midline structures show no abnormality. Scattered foci of high T2 s ignal intensity are seen within the periventricular white matter. The susceptibility weighted images do not reveal any evidence for micro-hemorrhage. After administration of gadolinium, no abnormal enha ncement is seen. Right occipital lobe developmental venous anomaly. The bone marrow signal is within normal limits. Paranasal sinuses and mastoid air cells: No significant paranasal sinus disease. Visualized orbits: Orbital contents are intact. IMPRESSION: 1. No evidence of intracranial mass, acute/subacute infarct, or abnormal enhancement. 2. Right occipital lobe developmental venous anomaly.
== END | disposition home or self-care (01) ==
LOC: RADMRIMAIN 21:45
PROVIDERS: ATTEND Family Medicine
DX: G40.909 Epilepsy, unspecified, not intractable, without status epilepticus (principal); Q04.9 Congenital malformation of brain, unspecified
CPT/HCPCS: 70553; A9585